=== PATIENT | female | born 1950 | race Caucasian/White ===

== ENCOUNTER 2016-09-28 05:06 | Inpatient (IN) ==
[2016-09-28] MEDS ORDERED: REGLAN ONE (06:07)
[2016-09-28] MEDS ORDERED: PEPCID ONE (06:07)
[2016-09-28] MEDS ORDERED: KEFZOL 1 GM/D5W 1 GM/50 ML IVPB ONE (06:07)
[2016-09-28] MEDS ORDERED: LR 1,000 ML ONE ×2 (06:07→11:30)
[2016-09-28] MEDS ORDERED: XYLOCAINE-MPF 1% ONE (06:28)
[2016-09-28] MEDS ORDERED: MARCAINE 0.25% PF/EPI 1:200,000 ONE (06:28)
[2016-09-28 08:01] LABS: URINE MICRO REVIEW NEEDED? NO; URINE SOURCE CATH
[2016-09-28 08:12] LABS: BILIRUBIN URINE NEGATIVE (NEGATIVE); BLOOD URINE NEGATIVE (NEGATIVE); COLOR YELLOW; GLUCOSE URINE NEGATIVE (NEGATIVE); LEUKOCYTES URINE NEGATIVE (NEGATIVE); NITRITE URINE NEGATIVE (NEGATIVE); PROTEIN URINE 30 mg/dL (NEGATIVE); SP GRAVITY URINE 1.014; TURBIDITY URINE CLEAR (CLEAR); UR EPITHELIAL CELLS <10 /HPF (<10); URINE BACTERIA NEGATIVE /HPF; URINE RBC <10 /HPF (<10); URINE WBC <10 /HPF (<10); UROBILINOGEN URINE NORMAL (NORMAL)
[2016-09-28] MEDS ORDERED: NORCO-7.5 PO PRN (09:46)
[2016-09-28] MEDS ORDERED: MORPHINE IV PRN (09:46)
[2016-09-28] MEDS ORDERED: ZOFRAN IV PRN (09:46)
[2016-09-28] MEDS: MORPHINE ONE ×3 (09:55→10:22)
[2016-09-28] MEDS ORDERED: FENTANYL ONE (09:56)
[2016-09-28] MEDS ORDERED: DIPRIVAN 1% ONE (09:56)
[2016-09-28] MEDS: LR 1,000 ML IV SCH ×3 (10:31→21:05)
[2016-09-28] MEDS ORDERED: ZOFRAN ONE ×2 (10:36→11:30)
[2016-09-28] MEDS ORDERED: EPHEDRINE ONE (11:30)
[2016-09-28] MEDS ORDERED: LABETALOL (DOSE) ONE (11:30)
[2016-09-28] MEDS ORDERED: ROBINUL ONE (11:30)
[2016-09-28] MEDS ORDERED: NORCURON ONE (11:30)
[2016-09-28] MEDS ORDERED: NEOSTIGMINE ONE (11:30)
[2016-09-28] MEDS ORDERED: STERILE WATER INJ. ONE (11:30)
[2016-09-28] MEDS ORDERED: XYLOCAINE-MPF 2% ONE (11:30)
[2016-09-28] MEDS ORDERED: QUELICIN (DOSE) ONE (11:30)
[2016-09-28] MEDS ORDERED: PNEUMOVAX 23 IM ONE (12:15)
--- NOTE | 2016-09-28 12:51 | OPERATIVE NOTE ---
PROCEDURE DATE: 09/28/2016 PREOPERATIVE DIAGNOSIS: Incisional hernias x2. POSTOPERATIVE DIAGNOSIS: Incisional hernias x2. PROCEDURE PERFORMED: Open incisional hernia repair with an 8 x 9 cm defect with an underlay mesh repair using a 20 cm circular Parietex composite mesh. SURGEON: Brayan Neal MD COMPLICATIONS: None. ESTIMATED BLOOD LOSS: 50 mL. SPECIMENS: Hernia sac. ANESTHESIA: General. INDICATIONS: This is a 66-year-old female who had an open hysterectomy several years ago, who developed a large incisional hernia that was symptomatic. FINDINGS: There was a large hernia in the upper midline incision and a smaller adjacent hernia with an approximately 1 cm bridging fascial gap between the two. We connected these, creating an 8 x 9 cm incisional hernia defect. There were minimal intraabdominal adhesions. The fascia was healthy and there were no other abnormalities noted. OPERATIVE NOTE: The risks, benefits, and alternatives were discussed with the patient and she consented to the procedure. She was seen preoperatively. The surgery to be performed was confirmed. She was taken to the operating room and placed in supine position. General anesthesia was induced. All bony prominences were padded. We placed a Foster catheter. The abdomen was prepped with chlorhexidine solution and draped in the usual fashion with Ioban gauze. After a time-out was performed, we planned an incision. We started just cephalad to her previous incision to enter a narrow, abnormal territory and carried this dissection incision down to the level of the hernia sac. We circumferentially dissected the hernia out widely. This took approximately 45 minutes to an hour to do. The hernia sac was very thin and the skin overlying it was very thin as well but we were able to do this safely. This did require creation of wide skin flaps bilaterally. We got back to healthy fascia and dissected this back wildly to facilitate suturing the mesh. After this, we opened the hernia sac, connected the bridging fascial gap, and excised the hernia sac circumferentially to ensure that there were no significant intraabdominal adhesions. Fashion with a gap and excised the hernia sac circumferentially to ensure that there is no significant intraabdominal adhesions. We did this and there were not. We were able to free up fascia widely back to healthy fascia. After this, we placed a moist lap overlying the small bowel to protect this and, using a malleable retractor, we had a self-retaining bowel for retractor holding the skin flaps back. We protected all perforating vessels as much as we could. I then selected a 20 cm mesh given the defect size to allow for at least a 5 cm overlap in each dimension. Then, using 0 PDS suture in horizontal mattress fashion. We circumferentially secured the mesh at least 5 cm in a centripetal fashion around the defect, fully obliterating the defect with no gaps that would allow herniation of bowel above the mesh. We took up any of the extra tension. There was no redundancy in the mesh and no undue tension. We then irrigated the superficial wound. We did remove the lap from the abdomen as well. We closed the fascia with interrupted 0 PDS sutures along the midline, fully covering the mesh. There was no tension on the fascia in the midline either. Then, excising the redundant skin, this was all perfused. There was no evidence of ischemia of the skin flaps. We placed a Solomon drain underneath both subcutaneous flaps and secured these with 2-0 nylon suture. We tacked down the umbilical stalk with the intention of recreating an umbilicus with 3-0 Vicryl sutures. We then irrigated the superficial wound and closed the skin with da. Gauze and a Medipore tape dressing was applied. We placed drains to suction and applied an abdominal binder. She was awoke and transferred to the PACU in good condition. I spoke with the family. We will admit her tonight for pain control and observation and advance her diet as tolerated. Counts were correct x2 at the end of the case. cc: Brayan Neal MD
[2016-09-28] MEDS: ROBAXIN 1,000 MG in NS 50 ML IV SCH ×2 (13:57→21:05)
[2016-09-28] MEDS ORDERED: NICODERM PATCH TD PRN (20:16)
[2016-09-28] MEDS: PERIDEX MT SCH (21:05)
[2016-09-28] MEDS: ZOCOR PO SCH (21:06)
[2016-09-28] MEDS: HUMULIN R SUBQ SCH (21:08)
[2016-09-29] MEDS: ROBAXIN 1,000 MG in NS 50 ML IV SCH ×4 (02:59→21:26)
[2016-09-29 06:42] LABS: HEMATOCRIT 38.9 % (37.0-47.0); HEMOGLOBIN 13.1 g/dL (12.0-16.0); MCH 31.3 PG (27-31); MCHC 33.7 g/dL (33-37); MCV 93.1 FL (81-99); MPV 9.7 FL (7.4-10.4); RBC 4.18 XMIL (4.2-5.4)
[2016-09-29] MEDS: LR 1,000 ML IV SCH ×2 (06:52→08:21)
[2016-09-29] MEDS: HUMULIN R SUBQ SCH ×4 (06:53→21:25)
[2016-09-29 07:04] LABS: AGAP 14; BUN 12 mg/dL (8-22); CALCIUM 8.8 mg/dL (8.8-10.2); CHLORIDE 97 mmol/L (98-107); COSMO 278; MAGNESIUM 1.4 mg/dL (1.5-2.7); POTASSIUM 3.6 mmol/L (3.5-5.1); SODIUM 137 mmol/L (136-145); TCO2 26 mmol/L (25-35)
[2016-09-29] MEDS: PERIDEX MT SCH ×2 (08:21→21:26)
[2016-09-29] MEDS ORDERED: MAGNESIUM SULFATE IM ONE (08:21)
[2016-09-29] MEDS: LOVENOX SUBQ SCH (08:21)
[2016-09-29] MEDS: NORVASC PO SCH (08:22)
[2016-09-29] MEDS ORDERED: TYLENOL PO PRN (08:32)
[2016-09-29] MEDS ORDERED: MAGNESIUM SULFATE 3 GM in NS 100 ML IV ONE (09:00)
[2016-09-29] MEDS: MAG-OX PO SCH (09:04)
--- NOTE | 2016-09-29 19:51 | PROGRESS NOTE ---
DATE: 09/29/2016 SUBJECTIVE: She feels well. Minimal pain. She is sitting in a chair. She is tolerating a diet and passing gas. Foster catheter in place. ENEDINA drain is serosanguineous. OBJECTIVE: Vital signs: Temperature, no fevers overnight; it is 99.0 currently. Pulse 94, blood pressure 142/83, oxygen saturation is 94% on room air. Abdomen: Soft. Appropriately tender. Dressing is clean, dry, and intact. ENEDINA drain is serosanguineous and the output is decreasing. LABORATORY: White count this morning is 13, hematocrit 38. Creatinine is 0.7, glucose 182, magnesium is low at 1.4. ASSESSMENT AND PLAN: This is a 66-year-old female status post incisional hernia repair with mesh. She is doing okay. Will remove her catheter in the morning and if she is able to void we will plan for her to go home after this, as her pain seems reasonably controlled currently. I will continue to monitor her. She is out of bed. She is on DVT prophylaxis. We will repleted her magnesium today with p.o. and IV route. cc: Brayan Neal MD
[2016-09-29] MEDS: ZOCOR PO SCH (21:26)
[2016-09-30] MEDS: ROBAXIN 1,000 MG in NS 50 ML IV SCH ×3 (02:55→11:24)
[2016-09-30] MEDS: HUMULIN R SUBQ SCH ×2 (06:24→11:26)
[2016-09-30 07:20] VITALS: BP 123/75
[2016-09-30] MEDS: NORVASC PO SCH ×2 (07:55→11:25)
[2016-09-30] MEDS: PERIDEX MT SCH ×2 (07:55→11:25)
[2016-09-30] MEDS: LOVENOX SUBQ SCH ×2 (07:56→11:24)
[2016-09-30] MEDS: MAG-OX PO SCH ×2 (07:56→11:26)
--- NOTE | 2016-09-30 13:14 | DISCHARGE SUMMARY ---
ADMISSION DATE: 09/28/2016 DISCHARGE DATE: 09/30/2016 SUBJECTIVE: She feels well. She is having flatus. Voiding without difficulty. No pain. This is well controlled with Tylenol alone and is tolerating a diet. OBJECTIVE: Vital Signs: T-max overnight is 100, but currently 98.7, pulse 93, blood pressure 123/75. She is 98% on room air. General: She is alert and in no acute distress. Abdomen: Soft, appropriately tender. Incision is clean, dry, and intact. There is some mild bruising, but the skin was all viable. There are no recurrent hernias, seroma. ENEDINA drains has an appropriate amount of serosanguineous output. ASSESSMENT: A 66-year-old female, status post incisional hernia repair. She is doing very well. PLAN: For her to go home today. HOSPITAL COURSE: She was admitted on the day of her surgery, cleared by anesthesia for above surgery. For details please see her dictated operative note. Postoperatively, she was admitted. She had a urinary catheter for urine output monitoring. This was removed on postop day morning 2. She was able to void without difficulty. Her incisions all looked well. Her pain was well controlled with really only Tylenol and Robaxin. She is moving about the room well. She was given detailed drain instructions. She understands this and she was felt safe for discharge home at this time. FOLLOWUP: With me in the next week for drain removal and staple removal. She will continue abdominal binder, strict weight lifting restrictions. She will call with any redness or drainage from her wound, nausea, vomiting, worsening abdominal pain. She will continue her home medications. I have given her prescription for [place] and Col[facility]. DISPOSITION: Home to self-care with her family. Diet as tolerated, GI soft. cc: Brayan Neal MD
== END 2016-09-30 13:04 | disposition home health service (06) ==
LOC: OR 05:06 → 4N 05:06 → OBSVTOIN 09:46
PROVIDERS: ADMIT Surgery; ATTEND Surgery